=== PATIENT | male | born 1990 ===

== ENCOUNTER 2022-01-19 13:42 | Emergency (ER) | payer SELFPAY ==
[2022-01-19 13:49] VITALS: BP 190/104; PULSE 106; O2SAT 100
[2022-01-19 13:58] VITALS: BP 119/71; PULSE 82; RESP 16; O2SAT 97; BMI 30.8
--- NOTE | 2022-01-19 14:05 | ED_ITS ---
HPI - Psych General Chief Complaint: Altered Mental Status Stated Complaint: DRUG USE Time Seen by Provider: 01/19/22 14:04 Source: patient Mode of arrival: EMS Limitations: other (slightly intoxicated) History of Present Illness HPI Narrative: found wandering states he is from [place] had bloodshot eyes no trauma admits to PCP use MD complaint: substance abuse Onset (ago): day(s) (today) Duration: constant History of same: Yes Relieving factors: none Exacerbating factors: drug use Context: other (admits to using PCP today) Associated psychiatric symptoms: none Associated symptoms: denies other symptoms Treatments prior to arrival: none Related Data Allergies Allergy/AdvReac Type Severity Reaction Status Date / Time No Known Allergies Allergy Verified 01/19/22 14:33 Review of Systems Review of Systems: Constitutional : No Fever, No Chills Eyes: No Eye Pain, No Swelling, No Redness Cardiovascular : No Chest Pain, No SOB Respiratory : No Cough, No Sputum, No Dyspnea Gastrointestinal : No Nausea, No Vomiting, No Diarrhea, No Hematochezia, No Melena Genitourinary : No Dysuria, No Urinary Frequency, No Hematuria Musculoskeletal : No Myalgias Skin : No Skin Lesions, No rash Neuro : No Weakness, No Numbness, No Paresthesias, No Dizziness, No Headache Psych : positive Anxiety, positive Depression, positive SI/HI PMFSH Past Medical History Attestation statement: The following information was validated with the patient. Medical History (Updated 01/19/22 @ 14:10 by Julianne Otero DO) No pertinent past medical history Social History Social History (Updated 01/19/22 @ 14:08 by Julianne Otero DO) Patient Tobacco Use Status: Current someday Tobacco user Substance Use Type: Hallucinogens Physical Exam Vital Signs: Vital Signs: Last Vital Signs Pulse 82 01/19/22 13:58 Resp 16 01/19/22 13:58 BP 119/71 01/19/22 13:58 Pulse Ox 97 01/19/22 13:58 O2 Del Method 01/19/22 13:58 BMI result Body Mass Index 30.8 Appearance: Alert. Oriented X3. No acute distress. Eyes: Pupils equal, round and reactive to light. Injected, some mild nystagmus ENT: Pharynx normal. atraumatic Neck: Normal inspection. Neck supple. CVS: Normal heart rate and rhythm. Pulses normal. Respiratory: No respiratory distress. Breath sounds normal. Abdomen: Soft and nontender. Skin: Skin warm and dry. Normal skin color. Normal skin turgor. Extremities: No lower extremity edema. Neuro: Oriented X 3. No motor deficit. No sensory deficit. Course Course Course Narrative: GCS 15, alert and oriented x 3 wants to leave, attempting to talk to him, patient eloped from ED MDM - Psych MDM Narrative Medical decision making narrative: 31 yo male who is calm now but found wandering at a bar his eyes are injected and he has some mild nystagmus - admits to PCP abuse. He presents as PCP intoxication. He has no signs of head trauma or witnessed falls. He denies SI. Will observe until more sober Discharge Plan Discharge Clinical Impression: PCP intoxication Patient Disposition: Elopement Instructions: Acute Delirium (ED)
--- NOTE | 2022-01-19 14:25 | PC.NURSE ---
Pt was cleared by security.
== END 2022-01-19 16:00 | disposition left against medical advice (07) ==
LOC: HO.ED 15:18
PROVIDERS: Emergency Provider Emergency Medicine
DX: R41.82 Altered mental status, unspecified (principal); T40.995A Adverse effect of other psychodysleptics [hallucinogens], initial encounter; Y92.9 Unspecified place or not applicable
CPT/HCPCS: 99282